=== PATIENT | female | born 1980 | race Caucasian/White ===

== ENCOUNTER → 2018-08-14 | Outpatient (CLI) | payer BC ==
[2005-09-02 06:44] VITALS: PULSE 81; TEMP 97.2
== END ==
LOC: MC.RAD 07:57
DX: Z12.31 Encounter for screening mammogram for malignant neoplasm of breast (principal)

== ENCOUNTER → 2019-09-03 | Outpatient (CLI) | payer BC ==
[2005-09-02 06:44] VITALS: PULSE 81; TEMP 97.2
== END ==
LOC: MC.RAD 10:03
DX: Z12.31 Encounter for screening mammogram for malignant neoplasm of breast (principal); N64.89 Other specified disorders of breast

== ENCOUNTER → 2019-09-07 | Outpatient (CLI) | payer BC ==
[2005-09-02 06:44] VITALS: PULSE 81; TEMP 97.2
== END ==
LOC: MC.RAD 09:30
DX: N64.89 Other specified disorders of breast (principal)
CPT/HCPCS: G0279

== ENCOUNTER → 2019-09-10 | Outpatient (CLI) | payer BC ==
[2005-09-02 06:44] VITALS: PULSE 81; TEMP 97.2
== END ==
LOC: MC.RAD 09:50
DX: N63.11 Unspecified lump in the right breast, upper outer quadrant (principal); Z98.82 Breast implant status

== ENCOUNTER → 2020-12-26 | Outpatient (CLI) | payer BC ==
[2005-09-02 06:44] VITALS: PULSE 81; TEMP 97.2
== END ==
LOC: MC.RAD 14:27
DX: Z12.31 Encounter for screening mammogram for malignant neoplasm of breast (principal)

== ENCOUNTER → 2023-09-21 | Outpatient (CLI) | payer BC ==
[2005-09-02 06:44] VITALS: BP 141/77; PULSE 81; TEMP 97.2
== END ==
LOC: MC.RAD 07:58
DX: Z12.31 Encounter for screening mammogram for malignant neoplasm of breast (principal)